=== PATIENT | female | born 1995 | race Two or more races ===

== ENCOUNTER 2017-01-06 11:51 | Emergency (ER) | payer OTHER ==
[~2017-01-06] VITALS: Ht 167.6 cm; Wt 60.0 kg
[2017-01-06 11:54] VITALS: BP 128/79
== END 2017-01-06 13:08 | disposition home or self-care (01) ==
LOC: ED 12:50
DX: S93.491A Sprain of other ligament of right ankle, initial encounter (principal); W10.9XXA Fall (on) (from) unspecified stairs and steps, initial encounter; Y93.89 Activity, other specified; Y92.009 Unspecified place in unspecified non-institutional (private) residence as the place of occurrence of the external cause; Y99.9 Unspecified external cause status
CPT/HCPCS: 99284